=== PATIENT | female | born 1985 | race Caucasian/White ===

== ENCOUNTER 2017-01-01 12:15 | Emergency (ER) | payer OTHER ==
--- NOTE | ~2017-01-01 | CR126 ---
[facility] A Service of [facility] RADIOLOGY TEXT RESULTS PATIENT: SISSY PENA LOCATION: [facility] : 85 UNIT #: [id number] AGE: [address]: Татьяна Pascual SEX: F ORDER DR: [id number] [facility] [address] [place], [place] [address] [id number] E MR#: [id number] #: [id number] NAME: SISSY PENA. : 1985 SEX: F STUDY DATE/TIME: 01/01/2017 11:55 UNIT: [facility] ROOM: STUDY DESCRIPTION: CR Foot Complete Min 3 View Lt Attending Physician: Татьяна Pascual Pa-C Ordering Physician: Татьяна Pascual Pa-C Primary Care Physician: Primary Care Physician No MEDICAL IMAGING REPORT This report is preliminary unless electronic signature is present EXAM Left foot, 01/01/2017 11:55 hours HISTORY 31-year-old woman who injured foot and ankle on a pallet faye at work 2 days ago. COMPARISON Left ankle, 01/01/2017 FINDINGS AP, lateral and oblique views demonstrate normal bone density. There is no fracture, dislocation or degenerative change. IMPRESSION Negative left foot. Dictated by... Yesika Conway M.D. THIS IS AN ELECTRONICALLY VERIFIED REPORT Yesika Conway M.D. at 01/01/2017 2:30 PM Alvino TD: 01/01/2017 13:15 JOB #: [id number] MEDICAL IMAGING REPORT Page 1 of 1 COPY
--- NOTE | ~2017-01-01 | CR20 ---
[facility] A Service of [facility] RADIOLOGY TEXT RESULTS PATIENT: SISSY PENA LOCATION: [facility] : 85 UNIT #: [id number] AGE: [address]: Татьяна Pascual SEX: F ORDER DR: [id number] [facility] [address] [place], [place] [address] [id number] E MR#: [id number] Acc #: [id number] NAME: SISSY PENA. : 1985 SEX: F STUDY DATE/TIME: 01/01/2017 UNIT: [facility] ROOM: STUDY DESCRIPTION: CR Ankle Min 3 Views Lt Attending Physician: Татьяна Pascual Pa-C Ordering Physician: Татьяна Pascual Pa-C Primary Care Physician: No Primary Care Physician MEDICAL IMAGING REPORT This report is preliminary unless electronic signature is present EXAM Left ankle, 3 views, 01/01/2017, 1156 hours. HISTORY 31-year-old woman who injured her left foot and ankle on a pallet faye at work 2 days ago. Pain and swelling of the foot and ankle. COMPARISON Right foot, 01/01/2017. FINDINGS AP, lateral, and oblique views demonstrate no significant soft tissue swelling. There is no fracture, dislocation, or degenerative change. IMPRESSION Negative left ankle. Dictated by... Yesika Conway M.D. THIS IS AN ELECTRONICALLY VERIFIED REPORT Yesika Conway M.D. at 01/01/2017 2:30 PM Luis TD: 01/01/2017 13:41 JOB #: [id number] MEDICAL IMAGING REPORT Page 1 of 1 COPY
[~2017-01-01 12:15] MED LIST: BIRTH CONTROL; MEDS
== END 2017-01-01 12:59 | disposition home or self-care (01) ==
LOC: CFTX 12:15
DX: S90.32XA Contusion of left foot, initial encounter (principal); S90.02XA Contusion of left ankle, initial encounter; K21.9 Gastro-esophageal reflux disease without esophagitis; F17.210 Nicotine dependence, cigarettes, uncomplicated; W22.8XXA Striking against or struck by other objects, initial encounter; Y93.89 Activity, other specified; Y92.69 Other specified industrial and construction area as the place of occurrence of the external cause; Y99.0 Civilian activity done for income or pay
CPT/HCPCS: 29540; 73610; 73630; 99283